=== PATIENT | female | born 1995 | race Caucasian/White ===

== ENCOUNTER 2019-02-07 19:57 | Emergency (ER) | payer SELFPAY ==
[~2019-02-07] VITALS: Ht 162.6 cm; Wt 63.5 kg
[2019-02-07 20:35] VITALS: BP 121/80
== END 2019-02-07 20:58 | disposition home or self-care (01) ==
LOC: ER 20:00
DX: L03.032 Cellulitis of left toe (principal); L03.031 Cellulitis of right toe

== ENCOUNTER 2019-07-09 21:48 | Emergency (ER) | payer MEDICAID, OTHER ==
[~2019-07-09] VITALS: Ht 154.9 cm; Wt 62.6 kg
[2019-07-09 21:52] VITALS: BP 118/81
--- NOTE | 2019-07-09 21:55 | NUR ---
PT CAME TO THE ED C/O COUGH, SOAR THROAT, AND SOB FOR THE PAST 4 DAYS. LUNG SOUNDS CLEAR UPON AUSCULTATION. RR EVEN AND UNLABORED ON RA W NAD NOTED. PT CONNECTED TO THE ENGRAVER HAND SOFT METALS ANDPOX
--- NOTE | 2019-07-09 22:12 | NUR ---
DR QUINONEZ AT [facility]
--- NOTE | 2019-07-09 22:17 | NUR ---
Patient discharged to home in stable condition. Written and verbal after care instructions given. Patient verbalizes understanding of instruction.
== END 2019-07-09 22:18 | disposition home or self-care (01) ==
LOC: ER 21:52
DX: O99.511 Diseases of the respiratory system complicating pregnancy, first trimester (principal); J02.9 Acute pharyngitis, unspecified; Z3A.08 8 weeks gestation of pregnancy